=== PATIENT | male | born 1950 | race Asian ===

== ENCOUNTER 2017-11-25 18:17 | Emergency (ER) | payer SELFPAY ==
[2017-11-25 18:40] VITALS: BP 155/91; PULSE 71; TEMP 98; BMI 24.4
--- NOTE | 2017-11-25 18:41 | PDOC ---
Rapid Medical Evaluation Time Seen by Provider: 11/25/17 18:38 Medical Evaluation: 11/25/17 18:39 I have performed a brief in-person evaluation of this patient. The patient presents with a chief complaint of: here for med refills, recently moved to [facility] from [facility]. No pmd in states yet. H/o IDDM, HTN. No sxs at this time. Pertinent physical exam findings:stable I have ordered the following:nothing The patient will proceed to the ED for further evaluation. Discharge Disposition - Diagnosis Medication refill - Referrals - Patient Instructions - Post Discharge Activity
--- NOTE | 2017-11-25 19:09 | PDOC ---
History of Present Illness - General Chief Complaint: RX Refill Stated Complaint: SUGAR LEVEL Time Seen by Provider: 11/25/17 18:38 History Source: Patient Exam Limitations: No Limitations - History of Present Illness Initial Comments: 11/25/17 19:23 67-year-old male with past medical history of hypertension, diabetes and hyperlipidemia presents emergency Department requesting refills of his daily medication. Patient is newly arrived from [facility] with his and is been taking blister pack medication he received prior to departing in the. He has 3 days of medication left and is requesting refill of his medications here. Patient's fiboyk-ro-lci states she has set up an appointment with Dr. Cage for continued evaluation and needs some medication until his evaluation. Patient currently denies all complaints. Past History - Past Medical History Allergies/Adverse Reactions: Allergies Allergy/AdvReac Type Severity Reaction Status Date / Time No Known Allergies Allergy Verified 11/25/17 18:40 Home Medications: Ambulatory Orders Insulin (Novolog) [Novolog Vial] 20 units SQ ACDIN #20 units 11/25/17 Insulin (Novolog) [Novolog] 28 units SQ AM #1 vial 11/25/17 Lisinopril 5 mg PO BID #60 tablet 11/25/17 Metformin HCl [Metformin HCl ER] 1,000 mg PO BID #30 tab.er.24 11/25/17 Rosuvastatin [Crestor -] 5 mg PO HS #30 tablet 11/25/17 Syrge-Ndl,Ins 0.3 ml Half Calderon [Insulin Syringe] 1 each MC BID #60 disp.syrin - Suicide/Smoking/Psychosocial Hx Smoking History: Never smoked Have you smoked in the past 12 months: No Information on smoking cessation initiated: No Hx Alcohol Use: No Drug/Substance Use Hx: No Review of Systems - Review of Systems Able to Perform ROS?: Yes Is the patient limited Upper Sorbian proficient: No All Other Systems: Reviewed and Negative *Physical Exam - Vital Signs Last Vital Signs Temp Pulse Resp BP Pulse Ox 98.0 F 71 16 155/91 100 11/25/17 18:39 11/25/17 18:39 11/25/17 18:39 11/25/17 18:39 11/25/17 18:39 - Physical Exam General Appearance: Yes: Appropriately Dressed. No: Apparent Distress HEENT: positive: Normal ENT Inspection Neck: positive: Trachea midline, Supple Respiratory/Chest: positive: Lungs Clear, Normal Breath Sounds. negative: Respiratory Distress, Accessory Muscle Use Cardiovascular: positive: Regular Rhythm, Regular Rate, S1, S2. negative: Edema , Murmur Gastrointestinal/Abdominal: positive: Normal Bowel Sounds, Soft. negative: Tender Musculoskeletal: positive: Normal Inspection. negative: CVA Tenderness Extremity: positive: Normal Inspection Integumentary: positive: Normal Color, Dry, Warm Neurologic: positive: home child care provider II-XII NML intact, Fully Oriented, Alert, Normal Mood/ Affect, Normal Response, Motor Strength 09/24 Medical Decision Making - Medical Decision Making 11/25/17 19:03 A/P: 67-year-old man with past medical history of htn, diabetes and hyperlipidemia requesting refills of her medications Patient has a list of his medications from [facility] contacted and equivalents US medications obtained I'll prescribe his medication at a one-month supply Patient is requesting to see Dr. Cage as a primary doctor for continued evaluation *DC/Admit/Observation/Transfer Diagnosis at time of Disposition: Medication refill - Discharge Dispostion Disposition: HOME Condition at time of disposition: Stable Decision to Admit order: No - Prescriptions Prescriptions: Insulin (Novolog) [Novolog] 28 units SQ AM #1 vial Insulin (Novolog) [Novolog Vial] 20 units SQ ACDIN #20 units Lisinopril 5 mg PO BID #60 tablet Metformin HCl [Metformin HCl ER] 1,000 mg PO BID #30 tab.er.24 Rosuvastatin [Crestor -] 5 mg PO HS #30 tablet Syrge-Ndl,Ins 0.3 ml Half Calderon [Insulin Syringe] 1 each MC BID #60 disp.syrin - Referrals Referrals: Teo William MD [Staff Physician] - - Patient Instructions Additional Instructions: Make an appointment with Dr. Cage for evaluation and continued treatment. Return to emergency department for any concerns. - Post Discharge Activity
== END 2017-11-25 19:25 | disposition home or self-care (01) ==
LOC: JERFT 18:17
DX: E11.9 Type 2 diabetes mellitus without complications (principal); Z79.4 Long term (current) use of insulin; Z79.84 Long term (current) use of oral hypoglycemic drugs; I10 Essential (primary) hypertension; E78.5 Hyperlipidemia, unspecified
CPT/HCPCS: 99281-25